=== PATIENT | female | born 1955 | race Caucasian/White ===

== ENCOUNTER 2019-02-10 09:44 | Inpatient (IN) | payer OTHER ==
[~2019-02-10] VITALS: Ht 154.9 cm; Wt 58.1 kg
[2019-02-10] MEDS ORDERED: SODIUM CHLORIDE 0.9% 1,000 ML IV ONE (12:07)
[2019-02-10] MEDS ORDERED: HEPARIN SODIUM (PORCINE) 5000 UNITS/ML 1ML VIAL IV ONE (12:45)
[2019-02-10 12:53] LABS: Basophils # (auto) 0.1 uL; Platelet Count (auto) 199 10^3/uL (140-450); White Blood Cell 20.8 10^3/uL (4.4-10.8)
[2019-02-10 12:55] LABS: Basophils % (auto) 0.4 % (0.0-2.0); Eosinophils # (auto) 0.2 uL; Eosinophils % (auto) 0.8 % (0.0-7.0); Hematocrit 23.1 % (36.0-46.0); Hemoglobin 7.3 g/dL (12.2-16.2); Lymphocytes # (auto) 0.6 uL; Lymphocytes % (auto) 2.9 % (10.0-50.0); Mean Corpuscular Hemoglobin 31.6 pg (28.0-32.0); Mean Corpuscular Hgb Conc. 31.7 g/dL (32.0-36.0); Mean Corpuscular Volume 99.7 fL (80.0-100.0); Monocytes % (auto) 4.8 % (0.0-12.0); Neutrophils # (auto) 18.9 uL; Neutrophils % (auto) 91.1 % (37.0-80.0); Red Blood Cells 2.31 10^6/uL (4.0-5.20)
[2019-02-10 12:57] LABS: Red Cell Distribution Width 28.3 % (11.8-14.3)
[2019-02-10 13:12] LABS: INR 1.22 (0.9-1.15); Partial Thromboplastin Time 28.5 sec (23.64-32.05)
[2019-02-10 13:15] LABS: Alanine Aminotransferase 13 U/L (13-56); Albumin 2.9 g/dL (3.4-5.0); Anion Gap 11 (5-15); Aspartate Aminotransferase 34 U/L (15-37); BUN/Creatinine Ratio 20.3; Blood Urea Nitrogen 15 mg/dL (7-18); Calcium 8.7 mg/dL (8.5-10.1); Carbon Dioxide 23 mmol/L (21-32); Chloride 101 mmol/L (98-107); GFR African American 101 mL/min; GFR Non-African American 84 mL/min; Glucose 88 mg/dL (74-106); Potassium 4.8 mmol/L (3.5-5.1); Sodium 135 mmol/L (136-145)
[2019-02-10 13:20] LABS: Alkaline Phosphatase 182 U/L (45-117); Bilirubin, Total 0.2 mg/dL (0.2-1.0); Total Protein 6.4 g/dL (6.4-8.2)
[2019-02-10] MEDS ORDERED: LACTULOSE 20Gm/30ML SOLN PO PRN (14:00)
[2019-02-10] MEDS ORDERED: NITROGLYCERIN 0.4 MG SL TAB SL PRN (14:00)
[2019-02-10] MEDS ORDERED: TEMAZEPAM 15 MG CAP PO PRN (14:00)
[2019-02-10] MEDS ORDERED: MORPHINE SULF INJ 2 MG/ML SYRINGE 1ML IV PRN ×2 (14:00)
[2019-02-10] MEDS ORDERED: ACETAMINOPHEN 500 MG TAB PO PRN (14:00)
[2019-02-10] MEDS ORDERED: traMADol HCL 50 MG TAB PO PRN (14:00)
[2019-02-10] MEDS ORDERED: PROMETHAZINE HCL 25 MG/ML 1ML IV PRN (14:00)
[2019-02-10] MEDS: FAMOTIDINE 20 MG TAB PO SCH (14:37)
[2019-02-10] MEDS ORDERED: ANAS1TAB7 PO (15:27)
[2019-02-10] MEDS ORDERED: ATEN50TA PO (15:27)
[2019-02-10] MEDS ORDERED: HYDR-4833 PO (15:27)
[2019-02-10] MEDS ORDERED: SIMV-8 PO (15:27)
[2019-02-10] MEDS: ANASTROZOLE 1 MG PO SCH (16:45)
[2019-02-10] MEDS: HYDROcodone-ACET 5/325MG TAB PO PRN (16:51)
--- NOTE | 2019-02-10 17:58 | NUR ---
Telemetry admit from ER BO,AISSATOU admitted to Telemetry unit after SBAR received. Patient oriented to Rola jackman RN, unit, room, bed, and unit policies regarding patient care and visiting hours. Patient now on continuous telemetry monitoring, tele box # 75 and telemetry reading on arrival to unit is SINUS RHYTHM IN THE 80'S. Patient weighed by bedscale and encouraged to call if they need something. All questions and concerns addressed, patient verbalized understanding.
--- NOTE | 2019-02-10 20:37 | NUR ---
RECEIVED PT FROM DAY RN POC REVIEWED
[2019-02-10] MEDS ORDERED: ATORVASTATIN 20 MG TAB PO SCH (22:00)
[2019-02-10] MEDS: ENOXAPARIN SOD 60 MG/0.6 ML SYRINGE SC SCH (22:34)
--- NOTE | 2019-02-11 00:59 | NUR ---
resting with eyes closed resp even and unlabored, call light within reach
[2019-02-11 05:08] VITALS: BP 131/65
--- NOTE | 2019-02-11 06:36 | NUR ---
UP TO BSC WITH ASSIST [facility]A SENT TO LAB
[2019-02-11 07:14] LABS: Urine Bacteria FEW /hpf (None Seen); Urine Blood 2+ /uL (Negative); Urine Mucus FEW (None Seen); Urine Specific Gravity 1.016 (1.001-1.035); Urine WBC 65 /hpf (0 - 5)
--- NOTE | 2019-02-11 07:15 | NUR ---
REPORT GIVEN TO AM NURSE POC REVIEWED
[2019-02-11 07:18] LABS: Basophils # (auto) 0.1 uL; Eosinophils # (auto) 0.1 uL; Eosinophils % (auto) 0.6 % (0.0-7.0); Hemoglobin 7.3 g/dL (12.2-16.2); Lymphocytes # (auto) 0.5 uL; Lymphocytes % (auto) 2.8 % (10.0-50.0)
[2019-02-11 07:20] LABS: Basophils % (auto) 0.5 % (0.0-2.0); Hematocrit 22.6 % (36.0-46.0); Mean Corpuscular Hemoglobin 31.8 pg (28.0-32.0); Mean Corpuscular Hgb Conc. 32.3 g/dL (32.0-36.0); Mean Corpuscular Volume 98.5 fL (80.0-100.0); Monocytes % (auto) 5.7 % (0.0-12.0); Neutrophils # (auto) 15.9 uL; Neutrophils % (auto) 90.4 % (37.0-80.0); Platelet Count (auto) 202 10^3/uL (140-450); Red Blood Cells 2.29 10^6/uL (4.0-5.20); White Blood Cell 17.6 10^3/uL (4.4-10.8)
[2019-02-11 07:21] LABS: Red Cell Distribution Width 27.7 % (11.8-14.3)
--- NOTE | 2019-02-11 07:30 | NUR ---
Opening Shift Note Assumed care of patient, awake and alert with at bedside. No S/S of distress/SOB or pain. For safety patients bed is locked, in the lowest position with 2 side rails up and the call light with in reach. Instructed on POC and to call for assist PRN, will continue to monitor for any changes in condition .
[2019-02-11 08:00] VITALS: BP 122/64
[2019-02-11 09:21] VITALS: BP 122/64
[2019-02-11] MEDS: ANASTROZOLE 1 MG PO SCH (10:00)
[2019-02-11] MEDS ORDERED: ATENOLOL 50 MG TAB PO SCH (10:00)
--- NOTE | 2019-02-11 10:00 | NUR ---
Dr. Vanessa at bedside to discuss plan of care with patient and .
[2019-02-11] MEDS: FAMOTIDINE 20 MG TAB PO SCH (10:10)
[2019-02-11] MEDS: ENOXAPARIN SOD 60 MG/0.6 ML SYRINGE SC SCH (10:12)
--- NOTE | 2019-02-11 11:45 | NUR ---
Spoke with Leticia the case operator for [facility] regarding patients pending transfer to [facility]. Gave report to her via telephone. She asked that a copy of patients chart is ready at time of transfer.
[2019-02-11] MEDS: HYDROcodone-ACET 5/325MG TAB PO PRN (12:07)
--- NOTE | 2019-02-11 12:35 | NUR ---
1200 02/11/19 Contacted Agency Manager Leticia at [facility] and requested that authorization be provided for patient's continued stay. Per Leticia she did receive the clinical information for today that I faxed earlier. I let Leticia know that this patient has an order to transfer to [facility]. I faxed transfer order, discharge summary and Notice Regarding Post Stabilization to [facility] [phone]. I provided Agency Manager Leticia with contact information for Dr. Vanessa as well as the nurse's station.
[2019-02-11 13:17] VITALS: BP 119/64
--- NOTE | 2019-02-11 13:38 | NUR ---
5926 02/11/19 I received a call from [facility] [employer] Manager Leticia asking why patient can't be discharged home instead of being transferred to [facility] (discharge summary previously faxed to [facility]). Per Leticia her MD has also tried to get a hold of Dr. Vanessa. I called Dr. Vanessa-she answered right away-I called [facility] [employer] Leticia back and let her know that her MD needs to try again to contact Dr. Vanessa. I also let Leticia know that Dr. Vanessa will not discharge patient home due to low hemoglobin and being on blood thinners-therefore patient needs to be transferred to [facility] for continued care. Leticia will relay information to her MD and will call me back with an update on the status of the transfer.
[2019-02-11 16:58] VITALS: BP 109/60
--- NOTE | 2019-02-11 16:59 | NUR ---
Called and gave report to Carly at [facility] by calling .
--- NOTE | 2019-02-11 19:10 | NUR ---
Opening Shift Note Assumed care of patient, awake and alert x4. No S/S of distress/SOB or pain. Call light is within reach side rails up x2, bed is in lowest position. Updated on POC, awaiting transfer to [facility], all paperwork is signed and ready. Will continue to monitor for changes PRN.
--- NOTE | 2019-02-11 20:44 | NUR ---
Called [facility], spoke with Sabino, he stated a unit is in route and should be here in 10 to 15 min for transfer.
--- NOTE | 2019-02-11 21:45 | NUR ---
Discharge Transfers Patient is being transferred to [facility]... Patient is to follow up with accepting doctor, Dr. Taylor, at the receiving facility. She is going to room 326. She is accompanied by two [facility] personnel and traveling by ACLS protocol. No S/S of distress, SOB, or pain. IV to the right wrist is patent and intact. All wristbands were removed and telemetry box was sent to ICU. All belongings and paperwork sent with patient.
[2019-02-11 22:00] VITALS: BP 116/70
== END 2019-02-11 21:45 | disposition short-term general hospital (02) | DRG 301 ==
LOC: ER 09:47 → TELE 09:48 → TELE-WESTW 17:58
PROVIDERS: ADMIT Internal Medicine; ATTEND Internal Medicine Nephrology
DX: I82.411 Acute embolism and thrombosis of right femoral vein (principal); I82.431 Acute embolism and thrombosis of right popliteal vein; I70.0 Atherosclerosis of aorta; D50.0 Iron deficiency anemia secondary to blood loss (chronic); R31.9 Hematuria, unspecified; C54.1 Malignant neoplasm of endometrium; I82.441 Acute embolism and thrombosis of right tibial vein; Z85.3 Personal history of malignant neoplasm of breast; Z85.42 Personal history of malignant neoplasm of other parts of uterus; Z85.43 Personal history of malignant neoplasm of ovary; Z90.13 Acquired absence of bilateral breasts and nipples; Z90.710 Acquired absence of both cervix and uterus; Z88.8 Allergy status to other drugs, medicaments and biological substances; Z90.49 Acquired absence of other specified parts of digestive tract; Z79.899 Other long term (current) drug therapy
CPT/HCPCS: 36415; 71045; 80053; 81001; 83880; 84484; 85025; 85610; 85730; 93971; 96361; 96374; G0378